=== PATIENT | male | born 1945 | race Caucasian/White ===

== ENCOUNTER 2017-06-15 12:37 | Inpatient (IN) | payer OTHER, MEDICARE ==
[~2017-06-15] VITALS: Ht 170.2 cm; Wt 54.4 kg
[~2017-06-15 12:37] MED LIST: VITAMIN B COMP1 EACH PO
--- NOTE | 2017-06-15 13:50 | ED PSYCHIATRIC COMPLAINT ---
History of Present Illness General Chief Complaint: ETOH/Drug Related Complaint Stated Complaint: SIB FROM [facility] Source: patient, old records Exam Limitations: poor historian Allergies Coded Allergies: No Known Allergies (12/07/16) Triage Note: PT TO ED FOR ETOH DETOX, UNABLE TO QUANTIFY HOW MUCH HE HAS BEEN DRINKING EVERY DAY, DENIES ETOH TODAY BUT SEEMS INTOXICATED, DENIES HX OF WITHDRAWAL. Triage Nurses Notes Reviewed? yes Onset: Abrupt Duration: day(s):, week(s):, getting worse Timing: recent history Severity: moderate, severe HPI: 72-year-old male comes into the emergency room sent in by [facility] for increased confusion. Patient was recently there for alcohol detox. He reports that he has been feeling increasingly confused lately. He been experiencing pain all over his body jumping around to different areas. Mainly in the low back. (Andrew SANDHU,Gato) Vital Signs & Intake/Output Vital Signs & Intake/Output Vital Signs Date Time Temp Pulse Resp B/P B/P Pulse O2 O2 Flow FiO2 Mean Ox Delivery Rate 06/17 0630 98.4 54 18 102/66 95 Room Air 06/17 0200 97.6 54 20 140/88 06/17 0000 98.0 63 18 140/64 06/16 2147 97.6 54 20 140/88 98 06/16 2036 97.9 48 18 132/63 96 Room Air 06/16 1811 50 16 98/54 96 Room Air 06/16 1651 98.2 55 20 126/64 06/16 1626 98.2 55 20 126/64 97 Room Air 06/16 1319 97.9 57 124/70 97 ED Intake and Output 06/17 0000 06/16 1200 Intake Total 130 Output Total Balance 130 Intake, IV 10 Intake, Oral 120 Patient 120 lb Weight Weight Reported by Patient Measurement Method Reconcile Medications Acetaminophen 325 MG TABLET 3 TAB PO Q6-PRN PRN PAIN (Reported) Clonidine HCl 0.1 MG TABLET 1 TAB PO Q6-PRN PRN UNKNOWN (Reported) Folic Acid 1 MG TABLET 1 TAB PO DAILY VITAMIN SUPPORT (Reported) Gabapentin 300 MG CAPSULE 1 CAP PO TID UNKNOWN (Reported) Hydroxyzine Pamoate 25 MG CAPSULE 1 CAP PO Q6-PRN PRN UNKNOWN (Reported) Hydroxyzine Pamoate 50 MG CAPSULE 1 CAP PO DAILY PRN UNKNOWN (Reported) Ibuprofen 600 MG TABLET 1 TAB PO Q6-PRN PRN PAIN (Reported) Melatonin 3 MG TABLET 1 TAB PO QPM PRN SLEEP (Reported) Thiamine HCl 100 MG TABLET 1 TAB PO DAILY VITAMIN SUPPORT (Reported) Trazodone HCl 50 MG TABLET 1 TAB PO QPM PRN SLEEP (Reported) (Nikole SANDHU,Halie Aguilar) Past History Travel History Traveled to [place] past 21 day No Medical History Any Pertinent Medical History? 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 No (Gato Quach) Review of Systems Review of Systems Constitutional: Reports: no symptoms. EENTM: Reports: no symptoms. Respiratory: Reports: no symptoms. Cardiovascular: Reports: no symptoms. GI: Reports: no symptoms. Genitourinary: Reports: no symptoms. Musculoskeletal: Reports: see HPI. Skin: Reports: no symptoms. Neurological/Psychological: Reports: see HPI. Hematologic/Endocrine: Reports: no symptoms. Immunologic/Allergic: Reports: no symptoms. All Other Systems: Reviewed and Negative (Gato Quach) Physical Exam SAD PERSONS Done? patient not suicidal (Gato Quach) Physical Exam General Appearance: well developed/nourished, no apparent distress, alert, awake Head: atraumatic, normal appearance Eyes: Bilateral: normal appearance, PERRL, EOMI. 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 (Nikole SANDHU,Halie Aguilar) Progress Differential Diagnosis: dementia, drug intoxication, drug overdose, drug withdrawal, electrolyte abnormality, encephalitis, hypoglycemia, hypothyroidism, IC hem/mass/tumor, meningitis (Andrew SANDHU,Gato) Plan of Care: Orders Procedure Date/time Status PHOSPHORUS 06/17 0720 Complete MAGNESIUM 06/17 0720 Complete BASIC ELECTROLYTES PLUS BUN&CR 06/17 0600 Complete Lab Add-on Test 06/17 UNK Active MISSING MEDICATION FORM 06/17 UNK Active Regular Diet 06/16 D Active Vital Signs 06/16 2129 Active Teach/Educate 06/16 2129 Active Pain Treatment and Response 06/16 2129 Active Nutritional Intake, Monitor 06/16 2129 Active Isolation 06/16 2129 Active Intake & Output 06/16 2129 Active Patient Care Conference 06/16 2129 Active Activity/Ambulation 06/16 2129 Active PT Evaluate & Treat 06/16 1832 Active Pathway - chart 06/16 1832 Active House Staff 06/16 1832 Active NUTRITIONAL CONSULT 06/16 1832 Active Code Status 06/16 1832 Active VDRL 06/16 1829 Active HIV (Reflex to HIVCQ) 06/16 1829 Active Patient Data 06/16 1704 Active Pathway - chart 06/16 1519 Active MAGNESIUM 06/16 1519 Active ED Holding Orders 06/16 1513 Active Admit to inpatient 06/16 1513 Active Vital Signs 06/16 1513 Active Code Status 06/16 1513 Complete PSYCHIATRIC CONSULT 06/16 1154 Active Add-on Test (ER Only) 06/16 1152 Active VTE Mechanical Prophylaxis 06/16 UNK Active Precautions 06/16 UNK Active CIWA 06/16 UNK Active Intake & Output 06/15 1442 Active THYROID STIMULATING HORMONE 06/15 1415 Complete FREE T4 06/15 1415 Complete VITAMIN B12 06/15 1415 Complete VDRL 06/15 1342 Active LYME TITRE 06/15 1342 Active Current Medications Sig/Jeimy Start time Last Medication Dose Stop Time Status Admin Lorazepam 0.5 MG ONCE ONE 06/19 1800 CAN (Ativan) 06/19 1801 Lorazepam 1 MG Q6H 06/19 0000 CAN (Ativan) 06/19 1201 Lorazepam 1 MG Q12H 06/18 0000 CAN (Ativan) 06/18 1201 Cyanocobalamin/ 1 BAG DAILY 06/17 1000 CAN Thiamine/Pyridoxine 06/19 1759 (Vitamin in I.V.) Sodium Chloride 1,000 ML (Normal Saline 0.9%) Folic Acid 1 MG DAILY 06/17 1000 AC 06/17 (Folic Acid) 0935 Multivitamins 1 TAB DAILY 06/17 1000 AC (Theragran Vitamins) Thiamine HCl 100 MG DAILY 06/17 1000 AC (Vitamin B1) Lorazepam 0.5 MG Q2 PRN 06/17 0845 AC (Ativan) 06/24 0844 Enoxaparin Sodium 40 MG DAILY 06/16 1832 AC 06/17 (Lovenox) 0934 Thiamine HCl 500 MG TID 06/16 1600 CAN (Vitamin B-1) 06/18 1001 Thiamine HCl 500 MG TID 06/16 1600 CAN (Vitamin B-1) Sodium Chloride 50 ML (Normal Saline 50ML Bag) Acetaminophen 975 MG Q6P PRN 06/16 0445 AC 06/16 (Tylenol) 0443 Ibuprofen 800 MG Q6P PRN 06/16 0445 AC 06/17 (Motrin) 0647 Laboratory Tests 06/17/17 0720: Anion Gap 6, Estimated GFR > 60, BUN/Creatinine Ratio 21.4, Phosphorus 3.4, Magnesium 2.0 06/16 7:08 AM PATIENT SIGNED OUT TO ME BY DR ARIZMENDI, PENDING MRI HEAD. MAY GO BACK TO [facility] IF CLEARED. MRI currently unavailable. Patient evaluated by Mau Del Real from crisis. Likely delerium tremens vs wernicke korsakoff. Dr. Sequeira consulted, will begin high dose thiamine. Discussed with Dr. Lehman for admission. MOD paged. (Harleen Rose MD) (Nikole SANDHU,Halie Aguilar) Hand-Off Endorsed To: Harleen Rose MD Endorsed Time: 0700 Pending: MRI, other ([facility]) (Phylicia CHEW,Amadou Anaya) Diagnostic Imaging: Viewed by Me: MRI. Discussed w/RAD: MRI. (Harleen Rose MD) Departure Departure Disposition: STILL A PATIENT Condition: Stable Clinical Impression Primary Impression: Confusion Referrals: Patient Has No Primary Care Dr (PCP/Family) Departure Forms: Customer Survey General Discharge Information (Gato Quach) Admission Note Spoke With: Dominik CHEW,Johanna Documentation of Exam: Documentation of any treatments & extenuating circumstances including Concerns Regarding Discharge (functional status, medication knowledge or non-compliance, living conditions, etc.) that warrant an admission rather than observation: [IV THIAMINE HIGH DOSE, ATIVAN TAPER, PSYCHIATRY AND NEUROLOGY FOLLOW THROUGH, f/u MRI] (Harleen Rose MD)
[2017-06-15 14:30] LABS: ABSOLUTE BASOPHIL COUNT 0 /CUMM (0.0-0.2); ABSOLUTE EOSINOPHIL COUNT 0.1 /CUMM (0.0-0.7); ABSOLUTE GRANULOCYTE CT 5.5 /CUMM (1.4-6.5); ABSOLUTE LYMPH COUNT 1.5 /CUMM (1.2-3.4); ABSOLUTE MONOCYTE COUNT 0.8 /CUMM (0.10-0.60); BASOPHIL % 0.4 % (0.0-2.0); EOSINOPHIL % 1.5 % (0-5); GRANULOCYTE % 69.2 % (42.2-75.2); HEMATOCRIT 40.2 % (42-52); MEAN CORPUSCULAR HGB 31.2 PG (27.0-31.0); MEAN CORPUSCULAR HGB CONC 33.4 G/DL (33.0-37.0); MEAN CORPUSCULAR VOLUME 93.5 FL (80.0-94.0); MEAN PLATELET VOLUME 8.4 FL (7.4-10.4); PLATELET COUNT 202 /CUMM (130-400); RBC DISTRIBUTION WIDTH 14.5 % (11.5-14.5)
[2017-06-15] MEDS ORDERED: CLONIDINE HCL0.1 MG PO (14:52)
[2017-06-15] MEDS ORDERED: ACETAMINOPHEN325 M2 PO (14:52)
[2017-06-15] MEDS ORDERED: HYDROXYZINE PAM25 M2 PO (14:53)
[2017-06-15] MEDS ORDERED: IBUPROFEN600 M1 PO (14:54)
[2017-06-15] MEDS ORDERED: MELATONIN3 M4 PO (14:54)
[2017-06-15] MEDS ORDERED: HYDROXYZINE PAM50 M1 PO (14:54)
[2017-06-15] MEDS ORDERED: GABAPENTIN300 M2 PO (14:55)
[2017-06-15] MEDS ORDERED: TRAZODONE HCL50 M1 PO (14:55)
[2017-06-15] MEDS ORDERED: FOLIC ACID1 M1 PO (14:56)
[2017-06-15] MEDS ORDERED: THIAMINE HCL100 M1 PO (14:56)
--- NOTE | 2017-06-15 15:04 | RADIOLOGY REPORT ---
EXAMINATION: XR LUMBOSACRAL SPINE CLINICAL INFORMATION: Low back pain. COMPARISON: None TECHNIQUE: 4 views. FINDINGS: There is normal lumbar lordosis. There is mild loss of L2 vertebral height. Rest of the vertebral heights are normal. The vertebral alignment and disc heights are preserved. No lytic or sclerotic process seen. There is moderate stool in colon. IMPRESSION: Suspect L2 compression fracture. Recommend correlation with bone scan or MRI. Moderate constipation.
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
[2017-06-16 16:51] VITALS: BP 126/64
--- NOTE | 2017-06-16 16:53 | Admission Certification ---
Admission Certification Certification Statement - As attending physician, I certify that at the time of - admission, based on clinical presentation, severity of - symptoms, need for further diagnostic testing and - therapeutic interventions, and risk of adverse outcomes - without in-hospital treatment, in my clinical assessment, - this patient requires an acute hospital stay for a minimum - of two nights or longer. I have also considered psychsocial - factors such as support system, advanced age, financial - issues, cognitive issues, and failed out-patient treatments, - past re-admission history, safety of patient, and lack of - compliance as applicable. Specific rationale supporting this admission is: Acute confusion and delirium
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
[2017-06-16 21:47] VITALS: BP 140/88
[2017-06-17] VITALS (7 sets, daily range): BP systolic 102–140; BP diastolic 60–88
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
[2017-06-18] VITALS (7 sets, daily range): BP systolic 120–150; BP diastolic 60–90
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
--- NOTE | 2017-06-18 11:18 | MRI REPORT ---
EXAMINATION: MR BRAIN WITHOUT CONTRAST CLINICAL INFORMATION: Altered mental status. COMPARISON: None available. TECHNIQUE: Multiplanar, multisequence imaging of the brain was performed without intravenous contrast. \H\ \N\FINDINGS: There is no acute infarct, hemorrhage, or mass lesion. There is no extra-axial collection. There are moderate scattered foci of T2 hyperintensity in the bilateral cerebral white matter and central katie which are nonspecific but typical of small vessel ischemic changes. There is mild diffuse brain parenchymal volume loss. There is no evidence of hydrocephalus. The flow voids of the major intracranial arteries appear intact. The bones and extracranial soft tissues are unremarkable. IMPRESSION: 1. No acute infarct, mass lesion, intracranial hemorrhage, or evidence of hydrocephalus. 2. Moderate small vessel ischemic changes in a background of mild diffuse brain parenchymal volume loss.
--- NOTE | 2017-06-18 14:12 | Patient Discharge Instructions ---
Discharge Instructions General Discharge Information You were seen/treated for: Cognitive decline, alcohol abuse Watch for these problems: Fever, chest pain, shortness of breath Special Instructions: Please take all medications as directed. Please follow up with primary care and neurology. Please abstain from all alcohol and recreational drug use. Please follow up for admission to a rehabilitation facility. Diet Continue normal diet: Yes Activity Full Activity/No Limits: Yes Acute Coronary Syndrome Inclusion Criteria At DC or during hospital stay patient has or had the following: ACS DIAGNOSIS No Discharge Core Measures Meds if any: Prescribed or Continued at Discharge Meds if any: NOT Prescribed or Continued at Discharge Congestive Heart Failure Inclusion Criteria At DC or during hospital stay patient has or had the following: CHF DIAGNOSIS No Discharge Core Measures Meds if any: Prescribed or Continued at Discharge Meds if any: NOT Prescribed or Continued at Discharge Cerebrovascular accident Inclusion Criteria At DC or during hospital stay patient has or had the following: CVA/TIA Diagnosis No Discharge Core Measures Meds if any: Prescribed or Continued at Discharge Meds if any: NOT Prescribed or Continued at Discharge Venous thromboembolism Inclusion Criteria VTE Diagnosis No VTE Type NONE VTE Confirmed by (Test) NONE Discharge Core Measures - Per Current guidelines, there needs to be overlap - treatment for the first 5 days of Warfarin therapy. - If discharged on Warfarin prior to 5 days of - overlap therapy, the patient will need to be - assessed for post discharge needs including - *Post discharge parental anticoagulation - *Warfarin and/or parental anticoagulation education - *Follow up date to check INR post discharge At least 5 days overlap therapy as Inpatient No Meds if any: Prescribed or Continued at Discharge Note: Overlap Therapy is Warfarin and Anticoagulant Meds if any: NOT Prescribed or Continued at Discharge
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
== END 2017-06-18 15:11 | DRG 884 ==
LOC: ERH 12:37 → 2NA 06-16 15:13 → ERHI 06-16 15:13 → 2NA 06-16 15:13 → ENRESERV 06-16 19:54 → 2NA 06-16 21:00 → ENTRNSPT 06-16 21:01 → EDTRNSPT 06-16 21:01 → 2NA 06-16 21:29 → EDTRNSPTSTS 06-16 21:39 → EDTRNSPT 06-16 21:39 → CMPTRNSPT 06-16 21:58 → ENPENDDIS 06-18 14:33 → 2NA 06-18 15:11
PROVIDERS: Physician Assistant Medical
DX: R41.81 Age-related cognitive decline (principal); S32.029A Unspecified fracture of second lumbar vertebra, initial encounter for closed fracture; F10.20 Alcohol dependence, uncomplicated; W18.30XA Fall on same level, unspecified, initial encounter; F43.10 Post-traumatic stress disorder, unspecified
CPT/HCPCS: 2NAP; 70551; 86618; 36592; 72110; 80307; 81003; 82436; 87389; 93005; 93010; 97110-GO; 97116-GO; 97161-GP; 99233; G0480; J1650; J3490; J7040